=== PATIENT | female | born 1950 | race Caucasian/White ===

== ENCOUNTER 2020-05-29 11:30 | Outpatient (CLI) | payer MEDICARE ==
[2020-05-29 14:01] LABS: Anion Gap 14 mmol/L (10-20); BUN (Urea Nitrogen) 12 mg/dL (9.8-20.1); Calc. Creatinine Clearance 0 mL/min (70-130); Calcium 9.8 mg/dL (7.8-10.44); Carbon Dioxide 18 mmol/L (23-31); Chloride 115 mmol/L (98-107); Glucose 91 mg/dL (80-115); Potassium 4.7 mmol/L (3.5-5.1); Sodium 142 mmol/L (136-145)
[2020-05-29 14:14] LABS: Hemoglobin 11.8 g/dL (12.0-15.5)
[2020-05-30 13:08] LABS: SARS-CoV-2 PCR by NAA Not Detected (NotDetected)
== END 2020-05-29 11:31 | disposition home or self-care (01) ==
LOC: CSHLAB 11:30
PROVIDERS: ATTEND Otolaryngology Plastic Surgery within the Head & Neck
DX: Z01.818 Encounter for other preprocedural examination (principal); Z20.822 Contact with and (suspected) exposure to COVID-19; J34.2 Deviated nasal septum; J34.3 Hypertrophy of nasal turbinates
CPT/HCPCS: 80048; 85014; 85018; 87635; 93005; 93010; U0003; U0005

== ENCOUNTER 2020-06-03 10:42 | Day surgery (SDC) | payer MEDICARE ==
[2020-05-30 13:21] VITALS: BMI 22.3
[2020-06-03] MEDS ORDERED: Oxymetazoline HCl 0.05% ( 15 ML ) ONE ×2 (11:19→11:59)
[2020-06-03] MEDS ORDERED: Lidocaine 1% MPF 2 ML VIAL ONE (11:56)
[2020-06-03] MEDS ORDERED: Mupirocin 2% Ointment 22 GM Tube ONE (11:59)
[2020-06-03] MEDS ORDERED: PROPOFOL 20 ML ONE (12:17)
[2020-06-03] MEDS ORDERED: Fentanyl 100 MCG/2 ML VIAL ONE (12:17)
[2020-06-03] MEDS ORDERED: Midazolam HCl 2 mg/2 ml Vial ONE (12:17)
[2020-06-03] MEDS ORDERED: Ondansetron PF 4 MG/2 ML Vial ONE (12:18)
[2020-06-03] MEDS ORDERED: Rocuronium Bromide 10 MG/ML (10ML VIAL) ONE (12:18)
[2020-06-03] MEDS ORDERED: Dexamethasone 4 mg/ml Vial ONE (12:18)
[2020-06-03] MEDS ORDERED: Glycopyrrolate 0.2 MG/ML 5 ML SYRINGE ONE (12:18)
[2020-06-03] MEDS ORDERED: Lidocaine 1% PF 5 ML VIAL ONE (12:18)
[2020-06-03] MEDS ORDERED: PHENYLEPHRINE-NS 100 MCG/ML 10 ML SYRINGE ONE (12:38)
[2020-06-03] MEDS ORDERED: Lidocaine 1% w/Epinephrine 1:100K 20 ML VIAL ONE (12:39)
[2020-06-03] MEDS ORDERED: ePHEDrine 50 MG/ML VIAL ONE (12:44)
[2020-06-03] MEDS ORDERED: Morphine 2 MG/ML VIAL ONE (13:46)
== END 2020-06-03 14:55 | disposition home or self-care (01) ==
LOC: CSHSDC 10:42
PROVIDERS: ATTEND Otolaryngology Plastic Surgery within the Head & Neck
DX: J34.2 Deviated nasal septum (principal); J34.3 Hypertrophy of nasal turbinates; J34.89 Other specified disorders of nose and nasal sinuses
CPT/HCPCS: 30140; 30520; J2270; J1100; J2250; J2405; J2704; J3010; J3490